=== PATIENT | female | born 1995 | race Caucasian/White ===

== ENCOUNTER 2024-03-28 14:32 | Inpatient (IN) | payer MEDICAID, SELFPAY ==
[2024-03-28 14:36] VITALS: BP 135/95; PULSE 90; RESP 20; TEMP 36.7; O2SAT 98
--- NOTE | 2024-03-28 14:50 | ED.C_ITS ---
HPI - Psych 2 General: Chief Complaint: Psychiatric Symptoms Stated Complaint: SI Time Seen by Provider: 03/28/24 14:42 Source: patient and family Mode of arrival: ambulatory Limitations: no limitations History of Present Illness: Patient is a 29-year-old female presenting to the emergency department accompanied by mother due to suicidal ideations chronically for years, however worsening recently. Patient states that she has thoughts of wanting to harm herself, and has a significant history of self-harm by cutting. She states that the thoughts came on suddenly again today and states that she would rather than go through having those thoughts again and cutting. She states she was on medications for bipolar depression for years, however has been off of these for 2 years. She has been seeing counseling and a psychiatrist as an outpatient. She is not having homicidal ideations or hallucinations of any kind. States that she recently moved down to live with her mom from [facility]. She was hospitalized in a psychiatric facility approximately 7 or 8 years ago, per the patient. She is very anxious at this time and fidgeting. She does request something to ease her nerves and also request something for her indigestion. She does not report any history of suicide attempts and does not specifically have a plan at this time. She states that cutting is always been her way to cope. MD complaint: suicidal ideation Onset (ago): year(s) Duration: changing over time History of same: Yes Relieving factors: none Exacerbating factors: none Associated psychiatric symptoms: none Associated symptoms: Reports depression and suicidal ideation; Deny auditory hallucinations, visual hallucinations or homicidal ideation Treatments prior to arrival: none If self harm: admits thoughts of self harm Review of Systems 2 General: Reports: 10 or more systems reviewed and unremarkable except in HPI and below Const: Denies: fever(s), chills or fatigue Eyes: Denies: change in vision ENMT: Denies: throat pain, ear or mastoid pain or nasal discharge Card: Denies: chest pain, palpitations, swelling of feet/ankles or lightheadedness Resp: Denies: dyspnea, productive cough or wheezing GI: Denies: abdominal pain, nausea, vomiting, diarrhea or constipation : Denies: flank pain, difficulty voiding, dysuria or urinary frequency Musc: Denies: neck pain, back pain or joint pain Skin/Breast: Denies: rash Neuro: Denies: headache(s), numbness in extremities or weakness in extremities Psych: Reports: anxiety, depression and suicidal ideation; Denies: visual hallucinations, auditory hallucinations or homicidal ideation PFSH ED 2 PFSH: Medical History (Updated 03/28/24 @ 16:25 by ZINA Dawkins) Psychiatric care Physical Exam 2 Const: COMMON NORMALS: no acute distress, patient oriented x3 and no limitations GENERAL APPEARANCE: cooperative, comfortable and well developed ORIENTATION/CONSCIOUSNESS: Yes awake, Yes oriented to person, Yes oriented to place and Yes oriented to time HENMT: COMMON NORMALS: normocephalic, atraumatic and hearing grossly normal bilaterally HEAD & SCALP: normocephalic and atraumatic Eye: COMMON NORMALS: Equal, round and reactive pupils present, EOMs intact bilaterally and conjunctivae normal CONJUNCTIVA: Yes conjunctivae normal P UPIL: Yes Equal, round and reactive pupils present Neck/C-Spine: COMMON NORMALS: full ROM, supple and no JVD Resp: COMMON NORMALS: normal respiratory effort, No retractions, No use of accessory muscles and clear to auscultation bilaterally AUSCULTATION: clear to auscultation bilaterally Cardio: COMMON NORMALS: no JVD, regular rate, regular rhythm, No clicks present (Cardio), No murmurs present (Cardio) and No rub (Cardio) RATE: r egular rate RHYTHM: regular rhythm GI: COMMON NORMALS: Normal to inspection, nondistended, normoactive bowel sounds present, Soft to palpation and non-tender AUSCULTATION: Yes normoactive bowel sounds PALPATION: Yes Soft to palpation RECTAL EXAM: d eferred Extremity: COMMON NORMALS: normal to inspection, full ROM and capillary refill normal Neuro: COMMON NORMALS: patient oriented x3, moves all extremities, no focal motor deficits and no sensory deficits noted SENSORIUM/ORIENTATION: Yes oriented to person, Yes oriented to place and Yes oriented to time Psych: COMMON NORMALS: mental status grossly normal and Normal thought process present APPEARANCE: Yes grossly normal ACTIVITY/MOTOR BEHAVIOR: Yes psychomotor agitation and Yes fidgeting MOOD & AFFECT: Yes anxious THOUGHT PROCESS: Normal thought process present THOUGHT CONTENT: Yes Suicidality present, No Homicidality present and No Hallucination(s) present Skin: COMMON NORMALS: no rashes or lesions noted GENERAL SKIN EXAM: no rashes or lesions noted Course 2 Vital Signs: Vital signs: Vital Signs Temperature 98.1 F 03/28/24 14:36 Pulse Rate 90 03/28/24 14:36 Respiratory Rate 20 H 03/28/24 14:36 Blood Pressure 135/95 03/28/24 14:36 Pulse Oximetry 98 03/28/24 14:36 Oxygen Delivery Me thod Room Air 03/28/24 14:36 MDM - Psych Medical Decision Making Patient presented for thoughts of self-harm that were getting too severe to where she were having suicidal thoughts. History of the same. Has been off medications for couple of years. States that she wants to come in to have meds reevaluated. Patient cleared medically and given Ativan here to help with her anxiety. She did also request some medication for her indigestion. Case discussed with psychiatrist Dr. Monae who agrees to admit the patient. Dr. Anguiano will put in admission orders at this time and is aware of patient's case. Lab Data 03/28/24 15:11 03/28/24 15:11 Laboratory Results WBC 7.62 10^3/uL (3.29-11.43) 03/28/24 15:11 RBC 4.76 10^6/uL (3.85-5.65) 03/28/24 15:11 Hgb 14.80 g/dL (11.27-16.99) 03/28/24 15:11 Hct 42.6 % (36-47) 03/28/24 15:11 MCV 89.5 fl (85-98) 03/28/24 15:11 MCH 31.1 pg (27-33) 03/28/24 15:11 MCHC 34.7 g/dL (30-55) 03/28/24 15:11 RDW 12.2 % (12.1-15.1) 03/28/24 15:11 Plt Count 269 10^3/cmm (157-399) 03/28/24 15:11 MPV 9.2 fL (7.4-10.4) 03/28/24 15:11 Neut % (Auto) 68.5 % 03/28/24 15:11 Lymph % (Auto) 22.6 % 03/28/24 15:11 [place] % (Auto) 5.4 % 03/28/24 15:11 Eos % (Auto) 2.4 % 03/28/24 15:11 Baso % (Auto) 0.8 % 03/28/24 15:11 Neut # (Auto) 5.23 10^3/uL (1.8-7.7) 03/28/24 15:11 Lymph # (Auto) 1.7 10^3/uL (0.8-4.8) 03/28/24 15:11 [place] # (Auto) 0.4 10^3/uL (0.2-0.9) 03/28/24 15:11 Eos # (Auto) 0.2 10^3/uL (0.0-0.8) 03/28/24 15:11 Baso # (Auto) 0.1 10^3/uL (0.0-0.1) 03/28/24 15:11 Nucleated RBC % (auto) 0 % 03/28/24 15:11 Nucleated RBCs # 0.0 /100WBC 03/28/24 15:11 Sodium 139 mmol/L (136-145) 03/28/24 15:11 Potassium 3.9 mmol/L (3.5-5.1) 03/28/24 15:11 Chloride 110 mmol/L (98-107) H 03/28/24 15:11 Carbon Dioxide 18 mmol/L (22-29) L 03/28/24 15:11 Anion Gap 14.9 (5-19) 03/28/24 15:11 BUN 15 mg/dL (6-20) 03/28/24 15:11 Creatinine 0.7 mg/dL (0.5-0.9) 03/28/24 15:11 GFR Calculation 98.3 mL/min (90-130) 03/28/24 15:11 Glucose 103 mg/dL (65-115) 03/28/24 15:11 Calculated Osmolality 289 mOsm/kg (285-295) 03/28/24 15:11 Calcium 8.9 mg/dL (8.5-10.5) 03/28/24 15:11 Total Bilirubin 0.5 mg/dL (0.15-1.2) 03/28/24 15:11 AST 17 U/L (0-32) 03/28/24 15:11 ALT 13 U/L (0-33) 03/28/24 15:11 Alkaline Phosphatase 63 U/L (35-105) 03/28/24 15:11 Total Protein 7.5 g/dL (6.6-8.7) 03/28/24 15:11 Albumin 4.2 g/dL (3.5-5.2) 03/28/24 15:11 Globulin 3.3 g/dL (1.3-4.6) 03/28/24 15:11 HCG, Qual Negative (Negative) 03/28/24 15:18 Salicylates < 0.3 mg/dL (3-10) L 03/28/24 15:11 Urine Opiates Screen Negative ng/mL (Negative) 03/28/24 15:18 Acetaminophen < 5.0 ug/mL (10-30) L 03/28/24 15:11 Ur Barbiturates Screen Negative ng/mL (Negative) 03/28/24 15:18 Ur Phencyclidine Scrn Negative ng/mL (Negative) 03/28/24 15:18 Ur Amphetamines Screen Negative ng/mL (Negative) 03/28/24 15:18 U Benzodiazepines Scrn Negative ng/mL (Negative) 03/28/24 15:18 Urine Cocaine Screen Negative ng/mL (Negative) 03/28/24 15:18 U Marijuana (THC) Screen Positive ng/mL (Negative) H 03/28/24 15:18 Ethyl Alcohol < 10 mg/dL (0-10) 03/28/24 15:11 No radiology studies performed this visit Discharge Plan Discharge Patient Disposition: Admitted As Inpatient Clinical Impression: Suicidal ideation Condition: Stable Coding Level of Care Code ED Arterial Embalmer for Alesia Ledesma
[2024-03-28] MEDS: pantoprazole DR 40 mg Tablet PO (15:04)
[2024-03-28] MEDS: LORazepam 1 mg Tablet PO (15:04)
[2024-03-28 15:39] LABS: HCG Qualitative Urine. Negative (Negative)
[2024-03-28 15:48] LABS: Basophils # 0.1 10^3/uL (0.0-0.1); Basophils % 0.8 %; Eosinophils # 0.2 10^3/uL (0.0-0.8); Eosinophils % 2.4 %; Hematocrit 42.6 % (36-47); Lymphocytes # 1.7 10^3/uL (0.8-4.8); Lymphocytes % 22.6 %; Mean Corpuscular HGB Conc 34.7 g/dL (30-55); Mean Corpuscular Hemoglobin 31.1 pg (27-33); Mean Corpuscular Volume 89.5 fl (85-98); Mean Platelet Volume 9.2 fL (7.4-10.4); Monocytes # 0.4 10^3/uL (0.2-0.9); Monocytes % 5.4 %; Neutrophils # 5.23 10^3/uL (1.8-7.7); Neutrophils % 68.5 %; Nucleated Red Blood Cells % 0 %; Platelet Count 269 10^3/cmm (157-399); Red Blood Count 4.76 10^6/uL (3.85-5.65); Red Cell Distribution Width 12.2 % (12.1-15.1); White Blood Count 7.62 10^3/uL (3.29-11.43)
[2024-03-28 16:04] LABS: Alanine Aminotransferase 13 U/L (0-33); Albumin Level 4.2 g/dL (3.5-5.2); Alkaline Phosphatase 63 U/L (35-105); Anion Gap 14.9 (5-19); Aspartate Amino Transferase 17 U/L (0-32); Blood Urea Nitrogen 15 mg/dL (6-20); Calcium 8.9 mg/dL (8.5-10.5); Carbon Dioxide 18 mmol/L (22-29); Chloride 110 mmol/L (98-107); Creatinine Clr Calc Pharmacy 114.8128; Globulin 3.3 g/dL (1.3-4.6); Glomerular Filtration Rate 98.3 mL/min (90-130); Glucose 103 mg/dL (65-115); Osmolality Calculated 289 mOsm/kg (285-295); Potassium 3.9 mmol/L (3.5-5.1); Sodium 139 mmol/L (136-145); Total Bilirubin 0.5 mg/dL (0.15-1.2); Total Protein 7.5 g/dL (6.6-8.7)
[2024-03-28 16:09] LABS: Acetaminophen < 5.0 ug/mL (10-30); Alcohol Level < 10 mg/dL (0-10); Salicylate < 0.3 mg/dL (3-10)
[2024-03-28 16:21] LABS: Amphetamines Screen Urine Negative (Negative); Barbiturates Screen Urine Negative (Negative); Benzodiazepines Screen Urine Negative (Negative); Cocaine Screen Urine Negative (Negative); Opiate Screen Urine Negative (Negative); PCP Screen Urine Negative (Negative); THC Screen Urine Positive (Negative)
[2024-03-28 17:48] VITALS: BP 123/95; PULSE 106; RESP 19; TEMP 36.7; O2SAT 97
[2024-03-28] MEDS: OLANZapine 5 mg ODT PO (17:58)
[2024-03-28] MEDS: hyDROXYzine 25 mg Capsule 50 MG PO (19:31)
--- NOTE | 2024-03-28 19:51 | PC.NURSE ---
Patient arrived to unit, tearful and anxious. Patient reports urge to cut self this morning when she woke up. The last time she self-harmed was 6 months ago. Patient started feeling suicidal following these urges because she stated that she is doesn't like to feel this way. Patient says she has Asperger's syndrome. Patient also reports diagnoses of bipolar disorder. Patient recently moved to the area and is living with her daughter's grandmother as she has no other place to go. Patient has a suicide attempt in the past, four years ago by cutting her wrists. Patient reports seeing her grandparents murdered in front of her when she was [age]. Patient denies AVH. Patient is wanting to get restarted on medications.
[2024-03-28] MEDS: trazodone 50 mg Tablet PO (20:12)
[2024-03-28 20:22] VITALS: BP 124/88; PULSE 81; RESP 18; TEMP 36.3; O2SAT 99
[2024-03-28] MEDS: ondansetron 4 MG Tablet PO (20:34)
[2024-03-29 06:00] VITALS: BP 109/80; PULSE 99; RESP 18; TEMP 36.3; O2SAT 98
[2024-03-29] MEDS: hyDROXYzine 25 mg Capsule 50 MG PO (11:17)
[2024-03-29 13:52] VITALS: BP 117/76; PULSE 109; RESP 18; TEMP 36.7; O2SAT 98
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
[2024-03-29] MEDS: acetaminophen 325 mg Tablet 650 MG PO (15:32)
[2024-03-29] MEDS: pantoprazole DR 40 mg Tablet PO ×2 (18:28→18:31)
[2024-03-29] MEDS: buPROPion SR (12 HR) 150 mg Tablet PO (19:23)
[2024-03-29] MEDS: trazodone 50 mg Tablet PO (20:11)
[2024-03-29 21:24] VITALS: BP 111/61; PULSE 79; RESP 18; TEMP 36.9; O2SAT 97
[2024-03-30 06:00] VITALS: BP 105/73; PULSE 99; RESP 17; TEMP 36.4; O2SAT 97
[2024-03-30] MEDS: pantoprazole DR 40 mg Tablet PO (08:07)
[2024-03-30] MEDS: buPROPion XL (24 HR) 150 mg Tablet PO (08:07)
[2024-03-30 14:00] VITALS: BP 116/87; PULSE 102; RESP 16; TEMP 36.6; O2SAT 97
[2024-03-30] MEDS: hyDROXYzine 25 mg Capsule 50 MG PO (14:13)
--- NOTE | 2024-03-30 16:46 | W.PM.NPUPNS ---
Subjective NPU Subjective: Patient presented today reporting that she is doing okay. She reports that her mother was asking about when she might leave. We continue to discuss to most people are here 3 to 5 days. We discussed the likelihood of discharge at the beginning of the week. However we discussed that Dr. Lara would be here tomorrow and he will be making independent decisions regarding her care. We discussed the risks, benefits and alternatives to initiating BuSpar 10 mg p.o. twice daily and she understood and agreed to proceed as is documented in this note. She denied any side effects of the medication thus far. Mental Status Exam MSE Comments: This is a well-nourished well-developed white female in hospital scrubs with limited grooming and eye contact. Abnormal facies. No abnormal movements except for psychomotor retardation with some occasional psychomotor agitation. More cooperative with exam in mild to moderate distress. Speech was increased rate rate and normal to decreased volume. Mood described as anxious and depressed, affect congruent. Thought process mostly organized. Thought content: Patient denied current suicidal or homicidal ideation, there were no delusions reported or noted, she denied auditory or visual hallucinations. The patient exhibits signs of severe anxiety and depression. She has thoughts of self-harm, but has not acted on them. She has a history of self-harming by scratching her arms with her fingernails. She experiences feelings of hopelessness, helplessness, and worthlessness when she is depressed. She has difficulty sleeping and her appetite is affected when she is depressed. She has thoughts of not wanting to wake up, but has not had thoughts of suicide in almost a year. She also experiences physical symptoms of anxiety, such as dyspnea and a feeling of weight on her chest. She does not hear voices or see things, but she does have nightmares and flashbacks about traumatic events in her past. Attention and concentration were mostly intact and memory appeared mostly reliable but none were formally tested. She is alert and oriented x 3. Insight, judgment appear fair and impulse control impaired. Vitals/I&O/Wt Last Vital Signs Temp 98 F 03/30/24 14:00 Pulse 102 H 03/30/24 14:00 Resp 16 03/30/24 14:00 BP 116/87 03/30/24 14:00 Pulse Ox 97 03/30/24 14:00 O2 Del Method Room Air 03/30/24 14:00 Data NPU 03/28/24 15:11 03/28/24 15:11 A&P Assessment and plan (1) Suicidal ideation: (2) Asperger's disorder: (3) PTSD (post-traumatic stress disorder): (4) Major depressive disorder: (5) Anxiety: (6) Cannabis use disorder: Plan This is a 29-year-old white female with a long history of mental health issues including Aspergers, anxiety, and depression. She is currently experiencing severe anxiety and has had thoughts of self-harm. She has a history of self-harm, but has not acted on these thoughts in over six months. She is not currently on any mental health medication, but is open to starting medication again. 1. Encourage individual, group and milieu therapy. 2. Evaluate for safety against the backdrop of 96-hour hold 3. Continue q-15 minute checks for safety.? 4.?Start Wellbutrin XL 150 mg p.o. every morning. Will give one-time dose of Wellbutrin SR 150 mg today one-time. Start BuSpar 10 mg p.o. twice daily 5.?Will attempt to gather collateral information. Involuntary Hold Information 96 Hour Hold: 96 Hour Involuntary Admission: No Attestations NPU Medical Necessity Statement*: Inpatient hospitalization is medically necessary and the clinically appropriate intervention at this time. We will monitor and adjust medications as indicated. Her likely length of stay 3- 4 days. Coding Level of Care Code Acute Code for [facility] Diagnoses Suicidal ideation R45.851 Asperger's disorder F84.5 PTSD (post-traumatic stress disorder) F43.10 Major depressive disorder F32.9 Anxiety F41.9 Cannabis use disorder F12.90
[2024-03-30] MEDS: BuSPIRONE 10 mg Tablet PO (17:26)
[2024-03-30] MEDS: trazodone 50 mg Tablet PO (20:06)
[2024-03-30 20:41] VITALS: BP 125/81; PULSE 107; RESP 18; TEMP 36.6; O2SAT 97
[2024-03-30] MEDS: acetaminophen 325 mg Tablet 650 MG PO (20:50)
[2024-03-31 06:00] VITALS: BP 119/78; PULSE 104; RESP 16; TEMP 36.6; O2SAT 99
--- NOTE | 2024-03-31 08:06 | W.PM.NPUPNS ---
Subjective NPU Subjective: Patient presented today reporting that she was feeling fairly good. She reports that she is appreciative of the efforts that we have made here in the hospital and continues to need some reassurance that this is not going to be some protracted stay. We discussed the fact that Dr. Lara would be here tomorrow and that he would be ultimately in charge of the decision but that based on her progress that it was unlikely that she would be here longer than Tuesday. That made her very happy. She denied any side effects to the medications. Mental Status Exam MSE Comments: This is a well-nourished well-developed white female in hospital scrubs with limited grooming and eye contact. Abnormal facies. No abnormal movements except for psychomotor retardation with some occasional psychomotor agitation. More cooperative with exam in mild to moderate distress. Speech was increased rate rate and normal to decreased volume. Mood described as anxious and depressed, affect congruent. Thought process mostly organized. Thought content: Patient denied current suicidal or homicidal ideation, there were no delusions reported or noted, she denied auditory or visual hallucinations. The patient exhibits signs of severe anxiety and depression. She has thoughts of self-harm, but has not acted on them. She has a history of self-harming by scratching her arms with her fingernails. She experiences feelings of hopelessness, helplessness, and worthlessness when she is depressed. She has difficulty sleeping and her appetite is affected when she is depressed. She has thoughts of not wanting to wake up, but has not had thoughts of suicide in almost a year. She also experiences physical symptoms of anxiety, such as dyspnea and a feeling of weight on her chest. She does not hear voices or see things, but she does have nightmares and flashbacks about traumatic events in her past. Attention and concentration were mostly intact and memory appeared mostly reliable but none were formally tested. She is alert and oriented x 3. Insight, judgment appear fair and impulse control impaired. Vitals/I&O/Wt Last Vital Signs Temp 97.8 F 03/31/24 06:00 Pulse 104 H 03/31/24 06:00 Resp 16 03/31/24 06:00 BP 119/78 03/31/24 06:00 Pulse Ox 99 03/31/24 06:00 O2 Del Method Room Air 03/30/24 14:00 Data NPU 03/28/24 15:11 03/28/24 15:11 A&P Assessment and plan (1) Suicidal ideation: (2) Asperger's disorder: (3) PTSD (post-traumatic stress disorder): (4) Major depressive disorder: (5) Anxiety: (6) Cannabis use disorder: Plan This is a 29-year-old white female with a long history of mental health issues including Aspergers, anxiety, and depression. She is currently experiencing severe anxiety and has had thoughts of self-harm. She has a history of self-harm, but has not acted on these thoughts in over six months. She is not currently on any mental health medication, but is open to starting medication again. 1. Encourage individual, group and milieu therapy. 2. Evaluate for safety against the backdrop of 96-hour hold 3. Continue q-15 minute checks for safety.? 4.?Start Wellbutrin XL 150 mg p.o. every morning. Start BuSpar 10 mg p.o. twice daily 5.?Will attempt to gather collateral information. Involuntary Hold Information 96 Hour Hold: 96 Hour Involuntary Admission: No Attestations NPU Medical Necessity Statement*: Inpatient hospitalization is medically necessary and the clinically appropriate intervention at this time. We will monitor and adjust medications as indicated. Her likely length of stay 2-3 days. Coding Level of Care Code Acute Code for [facility] Diagnoses Suicidal ideation R45.851 Asperger's disorder F84.5 PTSD (post-traumatic stress disorder) F43.10 Major depressive disorder F32.9 Anxiety F41.9 Cannabis use disorder F12.90
[2024-03-31] MEDS: buPROPion XL (24 HR) 150 mg Tablet PO (08:25)
[2024-03-31] MEDS: pantoprazole DR 40 mg Tablet PO (08:25)
[2024-03-31] MEDS: BuSPIRONE 10 mg Tablet PO ×2 (08:26→17:05)
--- NOTE | 2024-03-31 09:45 | PC.NURSE ---
Morning assessment Patient tearful during assessment. Patient stated that she is missing her daughter today. Patient denies SI, HI, AVH, anxiety, and depression. Patient took morning medications with no issue. Patient stated that she is doing much better since she got started back on her medications.
[2024-03-31 14:00] VITALS: BP 146/89; PULSE 91; RESP 16; TEMP 36.8; O2SAT 98
[2024-03-31] MEDS: hyDROXYzine 25 mg Capsule 50 MG PO (17:35)
[2024-03-31 20:12] VITALS: BP 121/85; PULSE 86; RESP 16; TEMP 36.5; O2SAT 98
[2024-03-31] MEDS: trazodone 50 mg Tablet PO (20:35)
[2024-03-31] MEDS: acetaminophen 325 mg Tablet 650 MG PO (21:25)
[2024-04-01 06:00] VITALS: BP 123/89; PULSE 101; RESP 16; TEMP 36.8; O2SAT 99
[2024-04-01] MEDS: OLANZapine 5 mg ODT PO ×2 (06:11→20:44)
[2024-04-01] MEDS: ondansetron 4 MG Tablet PO (07:11)
[2024-04-01] MEDS: hyDROXYzine 25 mg Capsule 50 MG PO (07:12)
--- NOTE | 2024-04-01 08:08 | PC.NURSE ---
Morning assessment Patient reports feelings of homesickness during assessment; patient verbalized understanding about benefits of being here for herself and her family. Patient denies SI, HI, AVH.
[2024-04-01] MEDS: pantoprazole DR 40 mg Tablet PO (08:41)
[2024-04-01] MEDS: BuSPIRONE 10 mg Tablet PO ×2 (08:41→17:19)
[2024-04-01] MEDS: buPROPion XL (24 HR) 150 mg Tablet PO (08:41)
[2024-04-01] MEDS: haloperidol 5 mg Tablet PO (09:29)
[2024-04-01 14:00] VITALS: BP 102/64; PULSE 79; RESP 16; TEMP 36.6; O2SAT 99
--- NOTE | 2024-04-01 16:23 | W.PM.NPUPNS ---
Subjective NPU Subjective: Patient is a 29-year-old female admitted with suicidal ideation with a history of depression, PTSD and Asperger's disorder. Patient reported depression and anxiety but stated that she was feeling more anxious here. She reported that she had been off of her medication for many years and was already feeling better with the addition of Wellbutrin 150 mg daily. She reported no side effects from her medication. The patient was compliant with her medication regimen. The patient was compliant with her medication regimen. She reported no feelings of hopelessness. The patient had reported previous difficulties with tolerating medications. She had reported feeling more depressed and suicidal on Paxil and Zoloft. Mental Status Exam MSE Comments: This is a well-nourished well-developed white female in hospital scrubs with limited grooming and eye contact. Abnormal facies. No abnormal movements except for psychomotor retardation with some occasional psychomotor agitation. She was more cooperative with exam in mild to moderate distress. Speech was normal in rate and decreased in volume. Mood described as better. Her affect was anxious and mood incongruent. Thought process mostly organized. Thought content: Patient denied current suicidal or homicidal ideation, there were no delusions reported or noted, she denied auditory or visual hallucinations. The patient exhibits signs of severe anxiety and depression. She denied thoughts of self-harm. She also experiences physical symptoms of anxiety, such as dyspnea and a feeling of weight on her chest. She does not hear voices or see things, but she does have nightmares and flashbacks about traumatic events in her past. Attention and concentration were mostly intact and memory appeared mostly reliable but none were formally tested. She is alert and oriented x 3. Insight, judgment appear fair and impulse control impaired. Vitals/I&O/Wt Last Vital Signs Temp 98 F 04/01/24 14:00 Pulse 79 04/01/24 14:00 Resp 16 04/01/24 14:00 BP 102/64 04/01/24 14:00 Pulse Ox 99 04/01/24 14:00 O2 Del Method Room Air 04/01/24 14:00 Weight last 48 hrs Weight 66.587 kg Data NPU 03/28/24 15:11 03/28/24 15:11 A&P Assessment and plan (1) Suicidal ideation: (2) Asperger's disorder: (3) PTSD (post-traumatic stress disorder): (4) Major depressive disorder: (5) Anxiety: (6) Cannabis use disorder: Plan This is a 29-year-old white female with a long history of mental health issues including Aspergers, anxiety, and depression. She is currently experiencing severe anxiety and has had thoughts of self-harm. She has a history of self-harm, but has not acted on these thoughts in over six months. She is not currently on any mental health medication, but is open to starting medication again. 1. Encourage individual, group and milieu therapy. 2. Evaluate for safety against the backdrop of 96-hour hold 3. Continue q-15 minute checks for safety.? 4 Continue Wellbutrin XL 150 mg p.o. every morning. Continue BuSpar 10 mg p.o. twice daily 5.?Will attempt to gather collateral information. Involuntary Hold Information 96 Hour Hold: 96 Hour Involuntary Admission: No Attestations NPU Medical Necessity Statement*: Inpatient hospitalization is medically necessary and the clinically appropriate intervention at this time. We will monitor and adjust medications as indicated. Her likely length of stay 2-3 days. Coding Level of Care Code Acute Code for [facility] Diagnoses Suicidal ideation R45.851 Asperger's disorder F84.5 PTSD (post-traumatic stress disorder) F43.10 Major depressive disorder F32.9 Anxiety F41.9 Cannabis use disorder F12.90
[2024-04-01 20:19] VITALS: BP 121/85; PULSE 88; RESP 16; TEMP 36.4; O2SAT 98
[2024-04-01] MEDS: trazodone 50 mg Tablet PO (20:44)
[2024-04-01] MEDS: acetaminophen 325 mg Tablet 650 MG PO (21:42)
[2024-04-02 06:00] VITALS: BP 116/74; PULSE 102; RESP 16; TEMP 36.5; O2SAT 98
[2024-04-02] MEDS: BuSPIRONE 10 mg Tablet PO (08:27)
[2024-04-02] MEDS: pantoprazole DR 40 mg Tablet PO (08:27)
[2024-04-02] MEDS: buPROPion XL (24 HR) 150 mg Tablet PO (08:27)
[2024-04-02 13:20] VITALS: BP 116/74; PULSE 102; RESP 16; TEMP 36.5; O2SAT 98
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
[2024-04-02 13:54] VITALS: BP 127/89; PULSE 91; RESP 16; TEMP 36.7; O2SAT 97
== END 2024-04-02 15:36 | disposition home or self-care (01) | DRG 881 ==
LOC: ER 16:25 → NP 16:36
PROVIDERS: Emergency Medicine; Admitting Provider Psychiatry & Neurology Psychiatry; Emergency Provider Physician Assistant; PCP Family Medicine; Visit Provider Psychiatry & Neurology Psychiatry
DX: F32.9 Major depressive disorder, single episode, unspecified (principal); R45.851 Suicidal ideations; F84.5 Asperger's syndrome; F41.9 Anxiety disorder, unspecified; F12.90 Cannabis use, unspecified, uncomplicated; Z91.52 Personal history of nonsuicidal self-harm
CPT/HCPCS: 36415; 80053; 80306; 80307; 81025; 85025; 97150; 97165; 99285; Q0162

== ENCOUNTER → 2024-05-03 09:49 | Outpatient (BNVA) | payer OTHER, SELFPAY | PROVIDERS: PCP Family Medicine; Visit Provider Nurse Practitioner | DX: Z79.899 Other long term (current) drug therapy (principal) | CPT/HCPCS: 80061; 83036 ==

== ENCOUNTER → 2025-05-20 13:15 | Outpatient (BNVA) | payer OTHER, SELFPAY | PROVIDERS: PCP Family Medicine; Visit Provider Nurse Practitioner | DX: Z79.899 Other long term (current) drug therapy (principal) | CPT/HCPCS: 80061; 83036 ==

== ENCOUNTER → 2025-07-03 13:49 | Outpatient (BNVA) | payer MEDICAID, SELFPAY | PROVIDERS: PCP Family Medicine; Visit Provider Nurse Practitioner Women's Health | DX: Z12.4 Encounter for screening for malignant neoplasm of cervix (principal) | CPT/HCPCS: 87624 ==